=== PATIENT | female | born 1980 | race African-American/Black ===

== ENCOUNTER 2024-04-06 18:39 | Inpatient (IN) | payer OTHER ==
[~2024-04-06] VITALS: Ht 167.6 cm; Wt 89.8 kg
[2024-04-06] MEDS ORDERED: ONDANSETRON HCL 4MG/2ML INJ IV STA (20:17)
[2024-04-06] MEDS ORDERED: KETOROLAC 30MG/ML VIAL IV STA (20:17)
[2024-04-06 21:25] LABS: BASOPHILS % 0.4 % (0.0-2.0); EOSINOPHILS % 0.1 % (0.0-5.0); HEMATOCRIT. 41.1 % (36.0-48.0); HEMOGLOBIN. 13.8 g/dL (12.0-16.0); LYMPHOCYTES % 8.5 % (20.0-50.0); MEAN CORPUSCULAR HGB CONC 33.5 g/dL (31.0-37.0); MEAN CORPUSCULAR VOLUME 86.6 fL (81.0-99.0); MEAN PLATELET VOLUME 9.8 fl (7.4-10.4); MONOCYTES % 8.4 % (2.0-8.0); NEUTROPHILS % 82.6 % (40.0-76.0); PLATELET 234 x1000/uL (130-400); RED BLOOD CELL COUNT 4.74 mill/uL (4.2-5.4); RED CELL DISTRIBUTION WIDTH 13.5 % (11.6-14.6); WHITE BLOOD COUNT 5.6 x1000/uL (4.5-11.0)
[2024-04-06 21:32] LABS: CHLORIDE 105 mEq/L (98-107); POTASSIUM 3.7 mEq/L (3.5-5.1); SODIUM 138 mEq/L (136-145)
[2024-04-06 21:33] LABS: CALCIUM 9.1 mg/dL (8.7-10.4); CARBON DIOXIDE 28 mEq/L (21-32); PROTHROMBIN TIME 10.8 sec (9.6-11.0)
[2024-04-06 21:38] LABS: CREATININE 0.8 mg/dL (0.6-1.0); GLUCOSE 133 mg/dL (70-105); UREA NITROGEN BLOOD 6 mg/dL (9-23)
[2024-04-06 21:40] LABS: ALANINE AMINOTRANSFERASE 24 IU/L (10-49); ALBUMIN 4.3 g/dL (3.2-4.8); ASPARTATE AMINOTRANSFERASE 21 IU/L (<34); BILIRUBIN TOTAL 0.3 mg/dL (0.1-1.0); PROTEIN TOTAL 7.6 g/dL (6.0-8.3)
[2024-04-06 21:41] LABS: HCG SCREEN NEGATIVE
[2024-04-06 21:49] LABS: BILIRUBIN DIRECT < 0.1 mg/dL (<=3.0)
[2024-04-06] MEDS: KETOROLAC 30MG/ML VIAL IV NR (22:05)
[2024-04-06] MEDS: SODIUM CHLORIDE 0.9% 1,000 ML IV ONE (22:05)
[2024-04-06] MEDS: ONDANSETRON HCL 4MG/2ML INJ IV NR (22:05)
[2024-04-07] MEDS: MORPHINE SULFATE 4 MG/ML INJ (FOR IV/IM USE) IV ONE (00:21)
[2024-04-07] MEDS: DEXT 5%/0.45% NACL 1000ML 1,000 ML IV SCH (01:30)
[2024-04-07] MEDS ORDERED: ZOLPIDEM TARTRATE 5MG TABLET PO PRN (01:30)
[2024-04-07] MEDS ORDERED: CLONIDINE 0.1MG TABLET PO PRN (01:30)
[2024-04-07] MEDS: ONDANSETRON HCL 4MG/2ML INJ IV PRN (03:51)
[2024-04-07] MEDS: ACETAMINOPHEN 325MG TABLET PO PRN (03:59)
[2024-04-07 04:00] VITALS: BP 100/47; PULSE 55; RESP 20; TEMP 36.7; O2SAT 99
[2024-04-07 05:18] VITALS: BP 100/47; PULSE 55; RESP 20; TEMP 36.8
[2024-04-07 08:00] VITALS: BP 102/52; PULSE 52; RESP 18; TEMP 36.4; O2SAT 96
[2024-04-07] MEDS: ENOXAPARIN 40MG/0.4ML SYR SUBCUT SCH (10:21)
[2024-04-07] MEDS: PANTOPRAZOLE SODIUM 40 MG/VIAL IV SCH (10:22)
[2024-04-07] MEDS: HYDROCODONE/ACETAMINOPHEN 5/325MG TABLET PO PRN (10:22)
[2024-04-07 12:00] VITALS: BP 104/55; PULSE 58; RESP 19; TEMP 36.4; O2SAT 98
[2024-04-07 13:39] LABS: HEPATITIS B SURFACE ANTIGEN NEGATIVE (Negative)
[2024-04-07 14:00] LABS: HEPATITIS C AB NON REACTIVE (Neg) (Negative)
[2024-04-07 16:00] VITALS: BP 122/91; PULSE 69; RESP 19; TEMP 36.5; O2SAT 99
[2024-04-07 18:18] LABS: *AMPHETAMINES SCREEN URINE NEGATIVE (NEGATIVE); *BENZODIAZEPINES SCREEN URINE NEGATIVE (NEGATIVE)
[2024-04-07 18:19] LABS: *BARBITURATES SCREEN URINE NEGATIVE (NEGATIVE); *COCAINE SCREEN URINE NEGATIVE (NEGATIVE); CANNABINOID URINE SCREEN NEGATIVE (NEGATIVE); ECSTASY MDMA SCREEN URINE NEGATIVE (NEGATIVE); METHADONE URINE SCREEN NEGATIVE (NEGATIVE); OPIATES URINE SCREEN PRESUMPTIVE POSITIVE (NEGATIVE); PHENCYCLIDINE URINE SCREEN NEGATIVE (NEGATIVE)
[2024-04-07 18:32] LABS: COLOR URINE YELLOW (YELLOW)
[2024-04-07 18:33] LABS: GLUCOSE URINE NEGATIVE (NEGATIVE); KETONES URINE NEGATIVE (NEGATIVE); OCCULT BLOOD URINE NEGATIVE (NEGATIVE); PROTEIN URINE NEGATIVE (NEGATIVE)
[2024-04-07 18:34] LABS: LEUKOCYTE ESTERASE URINE NEGATIVE (NEGATIVE); NITRITE URINE NEGATIVE (NEGATIVE); UROBILINOGEN URINE 0.2 E.U./dL (0.2-1.0)
[2024-04-07 18:38] LABS: CLARITY URINE CLOUDY (CLEAR)
[2024-04-07 18:39] LABS: BACTERIA URINE 2+; RBC URINE 0-2 /hpf (0-2); SQUAMOUS EPITHELIAL CELL URINE 2+ /lpf (RARE/1+); WBC URINE 0-2 /hpf (0-2); YEAST URINE RARE
[2024-04-07 20:00] VITALS: BP 108/52; PULSE 64; RESP 18; TEMP 37.3; O2SAT 100
[2024-04-08 04:00] VITALS: BP 120/83; PULSE 83; RESP 20; TEMP 36.4; O2SAT 95
[2024-04-08 06:17] LABS: CARBON DIOXIDE 26 mEq/L (21-32); CHLORIDE 107 mEq/L (98-107); POTASSIUM 3.6 mEq/L (3.5-5.1); SODIUM 139 mEq/L (136-145)
[2024-04-08 06:18] LABS: CALCIUM 8.2 mg/dL (8.7-10.4)
[2024-04-08 06:23] LABS: CREATININE 0.9 mg/dL (0.6-1.0); GLUCOSE 101 mg/dL (70-105)
[2024-04-08 06:40] LABS: UREA NITROGEN BLOOD < 5 mg/dL (9-23)
[2024-04-08 07:15] LABS: BASOPHILS % 0.3 % (0.0-2.0); EOSINOPHILS % 0.3 % (0.0-5.0); HEMATOCRIT. 35.9 % (36.0-48.0); HEMOGLOBIN. 11.8 g/dL (12.0-16.0); MEAN CORPUSCULAR HEMOGLOBIN 28.3 pg (28.0-32.0); MEAN CORPUSCULAR HGB CONC 32.8 g/dL (31.0-37.0); MEAN CORPUSCULAR VOLUME 86.3 fL (81.0-99.0); MEAN PLATELET VOLUME 10.6 fl (7.4-10.4); MONOCYTES % 10.6 % (2.0-8.0); NEUTROPHILS % 69.8 % (40.0-76.0); PLATELET 180 x1000/uL (130-400); RED BLOOD CELL COUNT 4.16 mill/uL (4.2-5.4); RED CELL DISTRIBUTION WIDTH 13.5 % (11.6-14.6)
[2024-04-08 08:00] VITALS: BP 101/51; PULSE 70; RESP 19; TEMP 36.8; O2SAT 97
[2024-04-08 12:00] VITALS: BP 103/47; PULSE 60; RESP 19; TEMP 37.1; O2SAT 100
[2024-04-08 16:00] VITALS: BP 116/59; PULSE 67; RESP 19; TEMP 37.5; O2SAT 96
[2024-04-08] MEDS ORDERED: GADOTERATE MEGLUMINE 5 MMOL/10 ML VIAL IV ONE (17:31)
[2024-04-08 18:11] VITALS: BP 116/59; PULSE 67; TEMP 99.5; O2SAT 96
== END 2024-04-08 19:45 | disposition short-term general hospital (02) | DRG 760 ==
LOC: ER 18:39 → 6EST 04-07 00:54
PROVIDERS: ADMIT Internal Medicine; ATTEND Internal Medicine
DX: D25.9 Leiomyoma of uterus, unspecified (principal); C56.2 Malignant neoplasm of left ovary; K80.20 Calculus of gallbladder without cholecystitis without obstruction; C57.4 Malignant neoplasm of uterine adnexa, unspecified; E28.2 Polycystic ovarian syndrome; R93.89 Abnormal findings on diagnostic imaging of other specified body structures; Z88.2 Allergy status to sulfonamides; Z88.5 Allergy status to narcotic agent
CPT/HCPCS: 36415; 72197; 74176; 74181; 76830; 76856; 80048; 80076; 80305; 81003; 84703; 85025; 86705; 87340; 93970; 99285; A4606; A9577; J1650; J1885; J2270; J2405; J2470; J7030